=== PATIENT | male | born 1985 | race Caucasian/White ===

== ENCOUNTER 2024-12-02 09:26 | Emergency (ER) | payer OTHER, SELFPAY ==
--- NOTE | ~2024-12-02 | US_ITS ---
EXAMINATION: US ABDOMEN LIMITED CLINICAL INFORMATION: Right upper quadrant pain and tenderness.. COMPARISON: None available. TECHNIQUE: Real-time imaging of the right upper quadrant abdominal viscera. FINDINGS: PANCREAS: Visualized portions are unremarkable. LIVER: The liver is normal in size. The liver contour is normal. There is diffuse increased liver parenchymal echogenicity, consistent with hepatic steatosis. No focal hepatic lesion. There is no intrahepatic biliary duct dilatation seen. GALLBLADDER: The gallbladder is physiologically distended without evidence of stones, sludge, wall thickening or pericholecystic fluid. There is a tiny 2 x 3 x 3 mm mural-based polyp, COMMON BILE DUCT: Normal in caliber measuring 0.3 cm in diameter. RIGHT KIDNEY: No hydronephrosis. No renal calculi or focal parenchymal lesions. The kidney measures 11.4 cm in maximum dimension. FREE FLUID: None. US/US abdomen limited IMPRESSION: 1. Echogenic liver likely representing steatosis. No focal lesions. 2. Gallbladder is normal aside from a tiny 2 x 3 x 3 mm polyp. 3. No biliary dilatation. Electronically signed by: Juan Gaines MD 12/02/2024 11:00 AM [facility]
[2024-12-02 09:34] VITALS: BP 148/88; PULSE 71; RESP 18; TEMP 35.8; O2SAT 97; BMI 30.7
--- NOTE | 2024-12-02 09:49 | ED.GENADULT ---
HPI - General Adult General Chief complaint: Abdominal Pain Stated complaint: pain r side abd rib area Time Seen by Provider: 12/02/24 09:49 History of Present Illness ED Provider: Elena GOLDSTEIN narrative: The patient is a 39-year-old male who was here for evaluation of right upper quadrant abdominal pain. He says that he has been having problems long time, possibly as long as months or even years with intermittent pains in his right upper abdomen. He feels the symptoms are worse after eating. He feels the symptoms has been worse over the last few days. He often feels that there is a sense of bulging of his abdomen in the right upper quadrant. His pain is not worse with taking a deep breath. He does not have any shortness of breath. He does not have any rib pain. He has not had any injuries. He has no sore throat. No sense of fever. No nausea or vomiting. Normal bowel movements. He says that when he has a bowel movement however he feels that the pressure of passing stool causes pain in his right upper abdomen. Related Data Previous Rx's ?Medication ?Instructions ?Recorded omeprazole 40 mg capsule,delayed 40 mg PO DAILY #30 caps 12/02/24 release Allergies Allergy/AdvReac Type Severity Reaction Status Date / Time gabapentin [GABAPENTIN] Allergy Severe RASH Verified 12/02/24 09:37 amoxicillin [AMOXICILLIN] Allergy Unknown FACIAL Verified 12/02/24 09:37 SWELLING clindamycin [CLINDAMYCIN] Allergy Unknown FACIAL Verified 12/02/24 09:37 SWELLING latex [LATEX] Allergy Unknown RASH Verified 12/02/24 09:37 penicillin V Allergy Unknown facial Verified 12/02/24 09:37 swelling Clindamycin HCl Allergy Unknown facial Uncoded 12/02/24 09:37 swelling Review of Systems Review of Systems: Yes all other systems are reviewed and are negative PMFSH Social History Social History Smoked in Last 30 Days: No Use of substances other than those prescribed or required for medical reasons: No Advance Directives: No Advance Directives Information Provided: Yes Do you have a plan to hurt others: No Plan Physical Exam ED Vital Signs: Vital Signs - 24 hr 12/02/24 09:34 12/02/24 11:52 Temperature 96.5 F L 98.6 F Pulse Rate 71 76 Respiratory Rate 18 18 Blood Pressure 148/88 H 138/84 Pulse Oximetry 97 98 Oxygen Delivery Method Room Air Room Air BMI result Body Mass Index 30.7 Const Other: The patient has the appearance of an ordinarily healthy 39-year-old. He does not appear in distress. Orientation/consciousness: patient oriented x3 HENMT Other: Face is symmetrical. Mucous membranes moist. Eyes General: appearance normal, both eyes and all related structures Neck Neck: Yes full ROM and Yes no lymphadenopathy Chest Other: No chest wall tenderness. No rib tenderness. Resp Effort & Inspection: normal respiratory effort Auscultation: clear to auscultation bilaterally Cardio Rate: regular rate Rhythm: regular rhythm Heart sounds: S1 normal heart sound present and S2 normal heart sound present GI Other: The patient has some tenderness in the right upper quadrant. No true Bonner's sign. The abdomen is otherwise soft and nontender Skin Other: Skin is dry and unremarkable Neuro General: patient oriented x3, gait normal, tone normal and moves all extremities Extrem General: Yes no pedal edema Medical Decision Making Medical Decision Making MDM Narrative: The patient is here for evaluation of right upper quadrant abdominal pain. He has no respiratory symptoms. This pain seems to be very subacute. He describes having pains like this going back as long as 5 years. His description of the pain sounds as if it may be more related to an abdominal wall problem than an intra-abdominal problem. An ultrasound of his gallbladder shows a small gallbladder polyp but no other findings. I explained to the patient that I thought that his pain syndrome might be related to his abdominal wall muscles. He is very concerned about the possibility of an abdominal wall hernia. I think this is probably unlikely but I will refer him to General surgery for evaluation as an outpatient to discuss this question further. I explained to the patient that there was an incidental finding of a gallbladder polyp. I told him this was normally benign process but he may discuss this further with his PCP. The patient also complained of excessive burping and says that his pain is sometimes worse when he eats. Perhaps he has some degree of gastritis. He will be started on omeprazole. Lab Data 12/02/24 09:46 12/02/24 09:46 Labs: Lab Results 12/02/24 12/02/24 Range/Units 09:46 10:12 WBC 5.5 (4.8-10.8) X10*3/uL RBC 5.04 (4.60-5.80) X10*6/uL Hgb 15.2 (14.0-18.0) g/dl Hct 43.6 (42.0-52.0) % MCV 86.5 (80.0-98.0) fL MCH 30.2 (27.0-33.0) pg MCHC 34.9 (31.0-36.0) g/dl RDW 11.9 (11.0-16.0) % Plt Count 168 (160-400) X10*3/uL MPV 9.9 (9.4-12.4) fL Immature Gran % (Auto) 0.2 (0.0-0.4) % Neut % (Auto) 39.7 L (45-73) % Lymph % (Auto) 47.4 H (20-40) % [facility] % (Auto) 7.3 (2-11) % Eos % (Auto) 4.9 H (0-4) % Baso % (Auto) 0.5 (0-2) % Lymph # (Auto) 2.6 (1.2-4.9) X10*3/uL [facility] [place] [facility] # (Auto) 0.4 (0.1-1.2) X10*3/uL Eos # (Auto) 0.3 (0.0-0.4) X10*3/uL Baso # (Auto) 0.0 (0.0-0.2) X10*3/uL Abs Immat Gran (auto) 0.01 (0.00-0.03) X10*3/uL Absolute Neuts (auto) 2.2 (2.0-8.3) x10*3/uL Absolute Nucleated RBC 0.000 (0.0-0.012) X10*3/uL Nucleated RBC % (auto) 0.0 (0.0-0.2) /100WBC Sodium 139 (135-145) mmol/L Potassium 4.4 (3.3-5.1) mmol/L Chloride 109 H (96-108) mmol/L Carbon Dioxide 24 (22-29) mmol/L Anion Gap 10 L (12-20) BUN 23 H (9-16) mg/dL Creatinine 0.94 (0.5-1.4) mg/dL Estim Creat Clear Calc 108.5 Estimated GFR > 60 Fasting Glucose 105 H (60-99) mg/dL Calcium 9.5 (8.4-10.2) mg/dL Total Bilirubin 0.6 (0.0-1.0) mg/dL Direct Bilirubin 0.3 (0.0-0.5) mg/dL AST 21 (5-37) U/L ALT 35 (0-40) U/L Alkaline Phosphatase 32 L (39-117) U/L Total Protein 7.5 (6.5-8.0) g/dL Albumin 4.6 (3.5-5.0) g/dL Lipase 21 (8-78) U/L Urine Color Yellow Urine Appearance Clear Urine pH 5.5 (5.0-9.0) Ur Specific [place] 1.020 (1.005-1.025) Urine Protein Negative (Neg-Trace) mg/dL Urine Glucose (UA) Negative (Negative) mg/dL Urine Ketones Negative (Negative) mg/dL Urine Blood Negative (Negative) Urine Nitrite Negative (Negative) Ur Leukocyte Esterase Negative (Negative) Discharge Plan Discharge Clinical Impression: Abdominal pain, right upper quadrant, Gallbladder polyp Patient Disposition: Home, Self-Care Additional Instructions: Your blood testing and the ultrasound of your gallbladder are unremarkable. Your ultrasound shows a very small polyp in your gallbladder. Gallbladder polyps or generally considered benign. You may discuss this further with your primary care doctor. I think that your pain may be coming from the abdominal wall muscles where they inserted into your right lower ribcage. Perhaps you had some kind of injury to your abdominal muscles in the past which remains a vulnerable spot. Please contact the General surgery office for an appointment with a general surgeon to discuss whether they think there is any chance of an abdominal wall hernia. Also follow up with your regular doctor. It is possible that some of your symptoms may be related to stomach acid over production. I have sent a prescription for medication called omeprazole to your pharmacy. This is a stomach acid reducing medication. Please take this medication once a day to see if it helps. You may discuss this further with your regular doctor. May try ibuprofen and/or acetaminophen as needed for discomfort when it is most severe. Return to the emergency room if worse. Prescriptions: New omeprazole 40 mg capsule,delayed release(DR/EC) 40 mg PO DAILY Qty: 30 0RF [place] [facility] [place] Group] (RUQ pain) Fred Neil MD [Primary Care Provider] - Print Language: Gibraltarian
[2024-12-02 09:51] LABS: MANUAL DIFF FLAG NO
[2024-12-02 09:53] LABS: Basophils Percent Auto 0.5 % (0-2); Eosinophils Absolute Auto 0.3 X10*3/uL (0.0-0.4); Eosinophils Percent Auto 4.9 % (0-4); Hematocrit 43.6 % (42.0-52.0); Hemoglobin 15.2 g/dl (14.0-18.0); Imm Gran Abs Auto 0.01 X10*3/uL (0.00-0.03); Imm Gran Pct Auto 0.2 % (0.0-0.4); Lymphocytes Absolute Auto 2.6 X10*3/uL (1.2-4.9); Lymphocytes Percent Auto 47.4 % (20-40); Mean Corpuscular HGB Conc 34.9 g/dl (31.0-36.0); Mean Corpuscular Hemoglobin 30.2 pg (27.0-33.0); Mean Corpuscular Volume 86.5 fL (80.0-98.0); Mean Platelet Volume 9.9 fL (9.4-12.4); Monocytes Absolute Auto 0.4 X10*3/uL (0.1-1.2); Monocytes Percent Auto 7.3 % (2-11); Neutrophils Absolute Auto 2.2 x10*3/uL (2.0-8.3); Neutrophils Percent Auto 39.7 % (45-73); Platelet Count 168 X10*3/uL (160-400); Red Blood Count 5.04 X10*6/uL (4.60-5.80); Red Cell Distribution Width 11.9 % (11.0-16.0); White Blood Count 5.5 X10*3/uL (4.8-10.8)
--- OUTSIDE RECORDS SUMMARY | 2024-12-02 09:59 | XMS_ITS | Clinical Summary ---
Author Organization [facility] [address] [place] [address] Address [address], [place] Phone Care Team Providers Care Day Haul Youth Supervisor Name Role Phone Unavailable Primary Care Provider Unavailabl e Social History Tobacco Use Types Packs/Day Years Used Date Smoking Tobacco: Never Assessed Sex and Gender Information Value Date Recorded Sex Assigned at Not on file Gender Identity Not on file Sexual Orientation Not on file Plan of Treatment Upcoming Encounters Date Type Department Care Team ([facility] st Contact Info) Description 01/20/2025 1:00 PM EDT Office Visit Adult Medicine [facility] [address], [place] [phone] Fred Neil MD [address], [place] Health Maintenance Due Date Last Done Comments DTaP,Tdap,and Td Vaccines (1 - Tdap) 2004 Hepatitis B Vaccines (1 of 3 - 19+ 3-dose series) 2004 COVID-19 Vaccine ( - 2023-2 5 season) 2024 Influenza Vaccine (#1) 2024 Cholesterol Screening (Lipid Panel) 09/07/2024 Depression Screening 09/07/2024 HIV Screening 09/07/2024 Hepatitis C Screening 09/07/2024 Social Influencers of Health Screening 09/07/2024 HIB Vaccines Aged Out No longer eligi ble based on patient's age to complete this topic HPV Vaccines Aged Out No longer eligi ble based on patient's age to complete this topic Hepatitis A Vaccines Aged Out No long er eligible based on patient's age to complete this topic IPV Vaccines Aged Out No longer eligi ble based on patient's age to complete this topic MMR Vaccines Aged Out No longer eligi ble based on patient's age to complete this topic Meningococcal ACWY Vaccine Aged Out N o longer eligible based on patient's age to complete this topic Pneumococcal Vaccine: Pediat rics (0 to 5 Years) and At-Risk Patients (6 to 64 Years) Aged Out No longer eligible b ased on patient's age to complete this topic RSV Immunization Patients Un esthela 20 months Aged Out No longer eligible b ased on patient's age to complete this topic Varicella Vaccines Aged Out No longer eligible based on patient's age to complete this topic
[2024-12-02 10:06] LABS: Alanine Aminotransferase 35 U/L (0-40); Albumin Level 4.6 g/dL (3.5-5.0); Alkaline Phosphatase 32 U/L (39-117); Anion Gap 10 (12-20); Aspartate Amino Transferase 21 U/L (5-37); Bilirubin Direct 0.3 mg/dL (0.0-0.5); Bilirubin Total 0.6 mg/dL (0.0-1.0); Blood Urea Nitrogen 23 mg/dL (9-16); Calcium 9.5 mg/dL (8.4-10.2); Carbon Dioxide 24 mmol/L (22-29); Chloride 109 mmol/L (96-108); Creatinine Clr Calc Pharmacy 108.5; Estimated Glomerular Filt Rate > 60; Glucose Fasting 105 mg/dL (60-99); Lipase 21 U/L (8-78); Potassium 4.4 mmol/L (3.3-5.1); Sodium 139 mmol/L (135-145); Total Protein 7.5 g/dL (6.5-8.0)
[2024-12-02 10:24] LABS: Appearance Urine Clear; Color Urine Yellow; Glucose Urine UA Negative (Negative); Leukocyte Esterase Urine Negative (Negative); Nitrite Urine Negative (Negative); PH 5.5 (5.0-9.0); Urine Blood Negative (Negative); Urine Ketones Negative (Negative); Urine Protein Negative (Neg-Trace)
[2024-12-02 11:52] VITALS: BP 138/84; PULSE 76; RESP 18; TEMP 37; O2SAT 98
[2024-12-02 12:00] VITALS: BP 138/84; PULSE 76; RESP 18; TEMP 37; O2SAT 98
== END 2024-12-02 12:00 | disposition home or self-care (01) ==
PROVIDERS: Emergency Provider Emergency Medicine; PCP Internal Medicine
DX: K82.4 Cholesterolosis of gallbladder (principal); R10.2 Pelvic and perineal pain; R07.81 Pleurodynia; R10.11 Right upper quadrant pain; Z79.899 Other long term (current) drug therapy
CPT/HCPCS: 36415; 76705; 80053; 80076; 81003; 82248; 83690; 85025; 99284

== ENCOUNTER → 2024-12-02 09:55 | Outpatient (BNV) | payer MEDICAID, SELFPAY | PROVIDERS: Emergency Provider Emergency Medicine; PCP Internal Medicine; Visit Provider Radiology Diagnostic Radiology | DX: R10.11 Right upper quadrant pain (principal) | CPT/HCPCS: 76705 ==

== ENCOUNTER 2024-12-06 10:59 | Outpatient (AMB) | payer MEDICAID, SELFPAY ==
--- NOTE | 2024-12-06 11:00 | A.OFFVIS_ITS ---
Vital Signs 12/06/24 11:05 Height 5 ft 6 in Weight 195 lb BMI 31.5 BP 131/85 Blood Pressure Location Rt brachial Position Sitting Pulse 77 Intake Visit Reasons: RUQ pain Intake Note: Patient referred after ED visit for RUQ pain. #2 concern umbilical hernia. Patient c/o: pain on and off. Denies nausea, vomiting, diarrhea, constipation. ABD US: 12-02-2024 Class B Driver Required: No Accompanied by: Self / Same As Patient Allergies gabapentin [GABAPENTIN] Allergy (Severe, Verified 12/06/24 11:05) RASH amoxicillin [AMOXICILLIN] Allergy (Unknown, Verified 12/06/24 11:05) FACIAL SWELLING clindamycin [CLINDAMYCIN] Allergy (Unknown, Verified 12/06/24 11:05) FACIAL SWELLING latex [LATEX] Allergy (Unknown, Verified 12/06/24 11:05) RASH penicillin V Allergy (Unknown, Verified 12/06/24 11:05) facial swelling Clindamycin HCl Allergy (Unknown, Uncoded 12/06/24 11:05) facial swelling Medication List - Last Reconciled 12/06/24 by Petey Interiano MD omeprazole 40 mg PO DAILY HPI Comments Details: Patient presents for evaluation of 1 of a symptomatic umbilical hernia 2. Of incidental finding of gallbladder polyp. Patient was had the umbilical hernia for many years time. His increasing in size, become more symptomatic. He would like to have repaired. He has no other GI issues or complaints aside from occasional gas pains. Patient has had upper endoscopy in the past. He has not had colonoscopy. He does significant heavy lifting at his place of employment. Patient had an ultrasound of his right upper quadrant because of symptoms which were felt to be related to his abdominal wall and it was done to rule out hernia in this area which he did not have. Incidental finding was of gallbladder polyp. This was quite small 2-3 mm. Patient never been jaundiced before. Past surgical history; 0pen right inguinal hernia repair in his youth. [facility] Surgical History (Updated 12/06/24 @ 11:17 by Petey Interiano MD) Hx of hernia repair Social History (Updated 12/06/24 @ 11:08 by JAYDEN Ceja) Alcohol intake: current Alcohol intake frequency: holidays/special occasions only Patient Tobacco Use Status: Never used Tobacco Physical Exam Vital Signs: Last Vital Signs Pulse 77 12/06/24 11:05 BP 131/85 12/06/24 11:05 BMI result Body Mass Index 31.5 Chest Other: Chest breath sounds bilaterally, HS 1 in 2 GI Other: Patient was examined both supine and standing with Valsalva. Corpulent abdomen. Right groin 0 scar from prior hernia repair. Bilateral groin exam negative. Genitalia within normal limits. Patient was a roughly 3 cm reducible umbilical hernia. Right upper quadrant demonstrates no evidence of any obvious hernia. Assessment & Plan Assessment & Plan (1) Umbilical hernia: Code(s): K42.9 - Umbilical hernia without obstruction or gangrene Category: Surgical Plan: Risks, benefits, alternatives of open right inguinal hernia repair reviewed with the patient and included but not limited to bleeding, infection, recurrence, numbness, pain, scarring, bowel injury and the patient wishes to proceed. All questions answered. Arrangements were made for this on a day which is convenient for him. (2) Gallbladder polyp: Code(s): K82.4 - Cholesterolosis of gallbladder Category: Surgical Plan: Patient will undergo surveillance of his gallbladder with follow-up ultrasound of the right upper quadrant in 6 months time. He will see me after that study as well. Orders: Orders US abdomen limited 6 Months K82.4 - Cholesterolosis of gallbladder Coding Level of Care Code New Pt Level 5 (59463) Diagnoses Umbilical hernia K42.9 Gallbladder polyp K82.4
[2024-12-06 11:05] VITALS: BP 131/85; PULSE 77; BMI 31.5
--- OUTSIDE RECORDS SUMMARY | 2024-12-06 12:06 | XMS_ITS | Clinical Summary ---
Author Organization [facility] [address] [place] [address] [place] [address] Phone Care Team Providers Care Aba Tutor Name Role Phone Unavailable Primary Care Provider Unavailabl e Social History Tobacco Use Types Packs/Day Years Used Date Smoking Tobacco: Never Assessed Sex and Gender Information Value Date Recorded Sex Assigned at Not on file Legal Sex Male 1:53 PM EST Gender Identity Not on file Sexual Orientation Not on file Plan of Treatment Upcoming Encounters Date Type Department Care Team ([facility] st Contact Info) Description 01/20/2025 1:00 PM EDT Office Visit Adult Medicine [address] [phone] Fred Neil MD [address] [place] [address] Health Maintenance Due Date Last Done Comments DTaP,Tdap,and Td Vaccines (1 - Tdap) 1992 Hepatitis B Vaccines (1 of 3 - 19+ 3-dose series) 2004 COVID-19 Vaccine (2023-2 5 season) 2024 Influenza Vaccine (#1) 2024 [...] patient's age to complete this topic Meningococcal B Vacine Aged Out No lo nger eligible based on patient's age to complete [...]
--- OUTSIDE RECORDS SUMMARY | 2024-12-06 12:06 | XMS_ITS | Data Portability ---
Author Organization [facility] [employer], [address] Address [address] [place] [address] Assessment No assessment recorded. Plan of Treatment Reminders Order Date Submit Date Provider Last Modified By Organization Details Last Modified Time Details Appointments None record ed. Lab None record ed. Referral None record ed. Procedures None record ed. Surgeries None record ed. Imaging None record ed. Medication Orders None record ed. Patient TargetsNo targets recorded. Patient InstructionsNo instructions recorded. Reason for Referral None Reported. Procedures Surgical History Date Name Laterality Status Provider Name and Address Organization Details Recorded Time OC-DOT PHYSICAL completed Jerardo Bryant [facility] [employer] [facility] 05/08/2024 11:40:08 Imaging Results None recorded. Procedure Notes None recorded. Medical Equipment None Reported. Medications Name Sig Start Date Stop Date Status Note LastModified by Organization Details LastModified Time amoxicillin 500 mg capsule TAKE 1 CAPSULE BY MOUTH EVERY 8 HOURS FOR 7 DAYS active Not Available Not Available No t Available Vitals None Recorded Social History None recorded. Functional Status None recorded. Mental Status None recorded. Family History Nothing Reported. Medical History No medical history recorded. 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 There may be additional screening tests that they will perform that we do not in the urgent care setting.Fa edsonure to follow up as recommende d may result in significan t adverse health consequenc es.?I f your symptoms worsen or you develop new symptoms that concern you, go to the emergency department for further evaluation . Health Concerns Section Related Observation LastModified by Organization Detai ls LastModified Time None Recorded Concern Status LastModified by Organization Details LastModified Time None Recorded Advance Directives Directive None Recorded Payers Encounter Date Sequence Insurance Name Policy Number Policy Omalley Covered Member ID Omalley Member ID Guarantor Name 05/08/2024 OC-PAY AT TIME OF SERVICE 2022 Gurwinder Conde OTHER Gurwinder Conde Notes Date Note Type Note Provider Name and Address Organization Details Recorded Time 05/08/2024 text/html PhysicalReported bypatient.source of patient informationpatient 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
== END 2024-12-06 11:13 | disposition home or self-care (01) ==
PROVIDERS: PCP Internal Medicine; Visit Provider Surgery
DX: K42.9 Umbilical hernia without obstruction or gangrene (principal); K82.4 Cholesterolosis of gallbladder
CPT/HCPCS: 99204

== ENCOUNTER → 2024-12-06 10:59 | Outpatient (BNVA) | payer MEDICAID, SELFPAY | PROVIDERS: PCP Internal Medicine; Visit Provider Surgery | DX: K42.9 Umbilical hernia without obstruction or gangrene (principal); K82.4 Cholesterolosis of gallbladder | CPT/HCPCS: 99202 ==

== ENCOUNTER 2025-04-04 15:22 | Outpatient (AMB) | payer OTHER, SELFPAY ==
--- NOTE | 2025-04-04 15:22 | A.OFFVIS_ITS ---
Vital Signs 04/04/25 15:29 Height 5 ft 6 in Weight 194 lb BMI 31.3 BP 138/77 Blood Pressure Location Rt brachial Position Sitting Pulse 77 Intake Visit Reasons: umbilical hernia Intake Note: Patient last seen by Dr. Interiano on 12-06-2024. Patient would like Umbilical hernia repaired. Patient c/o: sensitive to touch. Discomfort when puts pressure. PCP: Mateo Abbott (currently on wait list) Water Hydrant Installer Required: No Accompanied by: Self / Same As Patient Allergies gabapentin [GABAPENTIN] Allergy (Severe, Verified 04/04/25 15:23) RASH amoxicillin [AMOXICILLIN] Allergy (Unknown, Verified 04/04/25 15:23) FACIAL SWELLING clindamycin [CLINDAMYCIN] Allergy (Unknown, Verified 04/04/25 15:23) FACIAL SWELLING latex [LATEX] Allergy (Unknown, Verified 04/04/25 15:23) RASH penicillin V Allergy (Unknown, Verified 04/04/25 15:23) facial swelling Clindamycin HCl Allergy (Unknown, Uncoded 04/04/25 15:23) facial swelling Medication List - Last Reconciled 04/04/25 by Jack Augustin MD omeprazole 40 mg PO DAILY HPI HPI umbilical hernia: Details: 39-year-old male here for follow-up for an umbilical hernia. He had been previously seen by Dr. Interiano for this. He has been scheduled for repair. He describes having this sensitivity and pain on the umbilical area for several months now. He had an ultrasound back in November, showing a fat containing umbilical hernia He feels well overall. He denies any GI complaints. 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 [facility] Surgical History Hx of hernia repair Social History Alcohol intake: current Alcohol intake frequency: holidays/special occasions only Patient Tobacco Use Status: Never used Tobacco Review of Systems Const Denies chills and Denies fever(s) Card Denies chest pain, Denies dyspnea and Denies dyspnea on exertion Resp Denies cough, Denies dyspnea and Denies dyspnea on exertion GI Denies hematochezia and Denies change in bowel habits Denies hematuria and Denies difficulty urinating Musc Denies back pain and Denies limited range of motion Neuro Denies focal weakness and Denies convulsions Psych Denies depression and Denies mood swings Physical Exam Vital Signs: Last Vital Signs Pulse 77 04/04/25 15:29 BP 138/77 04/04/25 15:29 BMI result Body Mass Index 31.3 Const General: comfortable and no acute distress Nutritional Appearance: overweight Orientation/consciousness: patient oriented x3 Neck Neck: Yes no lymphadenopathy Resp Auscultation: clear to auscultation bilaterally Cardio Rhythm: regular rhythm GI Other: Protuberant abdomen with small umbilical hernia about 1.5 cm Palpation (GI): Soft to palpation, nontender and no guarding Neuro General: patient oriented x3 Assessment & Plan Assessment & Plan (1) Umbilical hernia: Code(s): K42.9 - Umbilical hernia without obstruction or gangrene Category: Surgical Plan: He has a small reducible umbilical hernia as above. He wants to proceed with the repair. I explained to him the technique of repair with possible mesh placement. I reviewed the risks including but not limited to bleeding, infections, bowel injury, recurrence, as well as the benefits and alternatives. I also reviewed with him what to expect postoperatively He says he understands and wants to proceed. Coding Level of Care Code New Pt Level 3 (20947) Diagnoses Umbilical hernia K42.9
[2025-04-04 15:29] VITALS: BP 138/77; PULSE 77; BMI 31.3
--- OUTSIDE RECORDS SUMMARY | 2025-04-04 17:05 | XMS_ITS | Clinical Summary ---
Author Organization [address] Address [address] [place], [place] Phone Care Team Providers Care Carbon Dioxide Operator Name Role Phone Teresa Velasco MD Primary Care Provider Social History Tobacco Use Types Packs/Day Years Used Date Smoking Tobacco: Never Assessed Sex and Gender Information Value Date Recorded Sex Assigned at Not on file Legal Sex Male 1:53 PM EST Gender Identity Not on file Sexual Orientation Not on file Plan of Treatment Upcoming Encounters Date Type Department Care Team ([facility] st Contact Info) Description 09/21/2025 11:00 AM EST Office Visit Adult Medicine [address] [phone] Teresa Velasco MD [address] [place] [address] Health Maintenance Due Date Last Done Comments DTaP,Tdap,and Td Vaccines (1 - Tdap) 2004 Hepatitis B Vaccines (1 of 3 - 19+ 3-dose series) 2004 COVID-19 Vaccine (2023-2 5 season) 2024 Cholesterol Screening (Lipid Panel) 09/07/2024 Depression Screening 09/07/2024 HIV Screening 09/07/2024 Hepatitis C Screening 09/07/2024 Social Influencers of Health Screening 09/07/2024 Influenza Vaccine (Season Ended) 2025 HIB Vaccines Aged Out No longer eligi [...] age to complete this topic Meningococcal B Vaccine Aged Out No l onger eligible based on patient's age to complete [...] on patient's age to complete this topic Insurance MED[place] - [place] [facility] Care Teams Carbon Dioxide Operator Relationship Specialty Start Date End Date Teresa Velasco MD [address] [place] [address] PCP - General Internal Medicine 01/25/25
== END 2025-04-04 15:40 | disposition home or self-care (01) ==
LOC: HO.HGS 15:22
PROVIDERS: PCP Internal Medicine; Visit Provider Surgery
DX: K42.9 Umbilical hernia without obstruction or gangrene (principal)
CPT/HCPCS: 99203

== ENCOUNTER → 2025-04-04 15:22 | Outpatient (BNVA) | payer OTHER, SELFPAY | PROVIDERS: PCP Internal Medicine; Visit Provider Surgery | DX: K42.9 Umbilical hernia without obstruction or gangrene (principal) | CPT/HCPCS: 99202 ==

== ENCOUNTER 2025-06-17 08:33 | Outpatient (REF) | payer OTHER, SELFPAY ==
--- NOTE | ~2025-06-17 | US_ITS ---
CLINICAL HISTORY: K82.4 - Cholesterolosis of gallbladder --- Additional Notes or Special Instructions: Surveillance six-month gallbladder polyp Exam: Ultrasound of the abdomen limited. Comparison: None provided. Findings: Liver measures 15 cm in long axis. Diffuse increased echotexture throughout the liver without focal lesion or intrahepatic biliary ductal dilatation. Common bile duct is within normal limits. Tiny echogenic focus along the gallbladder wall measures 2 x 3 mm in size. No gallbladder wall thickening or pericholecystic fluid. Negative sonographic Bonner's sign. No free fluid. Pancreas can not be visualized due to overlying bowel gas. Right kidney is unremarkable Impression: 1. Echogenic liver. This can be seen with fatty infiltration or medical liver disease. 2. Tiny echogenic focus along the gallbladder wall may be related to adherent stone, small sludge ball, or tiny polyp. No findings of cholecystitis. This document has been electronically signed by: Checo Quick MD on 06/18/2025 11:39:26
--- OUTSIDE RECORDS SUMMARY | 2025-06-17 08:49 | XMS_ITS | Clinical Summary ---
Author Organization [address] Address [address] [place], [place] Phone Care Team Providers Care Machine Driller Name Role Phone Teresa Velasco MD Primary Care Provider Social History Tobacco Use Types Packs/Day Years Used Date Smoking Tobacco: Never Assessed Sex and Gender Information Value Date Recorded Sex Assigned at Not on file Legal Sex Male 1:53 PM EST Gender Identity Not on file Sexual Orientation Not on file Plan of Treatment Upcoming Encounters Date Type Department Care Team ([facility] st Contact Info) Description 09/21/2025 11:00 AM EST Office Visit Adult Medicine [address] [phone] Teresa Velasco MD [address] [place] [address] Health Maintenance Due Date Last Done Comments DTaP,Tdap,and Td Vaccines (1 - Tdap) 2004 Hepatitis B Vaccines (1 of 3 - 19+ 3-dose series) 2004 COVID-19 Vaccine (2023-2 5 season) 2024 Cholesterol Screening (Lipid Panel) 09/07/2024 HIV Screening 09/07/2024 Hepatitis C Screening 09/07/2024 Social Influencers of Health Screening 09/07/2024 Depression Screening 10/27/2024 Influenza Vaccine (#1) 2025 HIB Vaccines Aged Out No longer [...] 5 Years) and At-Risk Patients (6 to 49 Years) Aged Out No longer eligible b ased on patient's age to complete this topic RSV Immunization Patients Un esthela 20 months Aged Out No longer eligible b ased on patient's age to complete this topic Varicella Vaccines Aged Out No longer eligible based on patient's age to complete this topic Insurance [place] - [place] [facility] Care Teams Machine Driller Relationship Specialty Start Date End Date Teresa Velasco MD [address] [place] [address] PCP - General Internal Medicine 01/25/25
--- OUTSIDE RECORDS SUMMARY | 2025-06-17 08:49 | XMS_ITS | Encounter Summary ---
Author Organization [facility] Address [address] [place] [address] Phone Care Team Providers Care Telegraph Repeater Technician Name Role Phone Unknown, Unknown Primary Care Provider Mathieu hurst Encounter Details Date Type Department Care Team (Late st Contact Info) Description 03/26/2017 Procedure Pass MRI, [facility] - [address], [address] [place] [id number] Social History Tobacco Use Types Packs/Day Years Used Date Smoking Tobacco: Former Cigarettes 0.5 5 1 11/10/2001 - 09/10/2007 Smokeless Tobacco: Never Alcohol Use Standard Drinks/Week Comments No 0 (1 standard drink = 0.6 oz pur e alcohol) Sex and Gender Information Value Date Recorded Sex Assigned at Not on file Legal Sex Male 11:58 AM EDT Gender Identity Not on file Sexual Orientation Not on file documented as of this encounter Plan of Treatment Not on file documented as of this encounter Visit Diagnoses Not on filedocumented in this encounter Care Teams Telegraph Repeater Technician Relationship Specialty Start Date End Date Unknown, Unknown, PCP - General 12/05/15 documented as of this encounter Additional Source Comments The information contained in this document represents components of the legal health record. It is not the complete legal health record.[facility]
--- OUTSIDE RECORDS SUMMARY | 2025-06-17 08:49 | XMS_ITS | Patient Health Record ---
Author Organization [facility] Address [address] [place] [address] Care Team Providers Care Release Coordinator Name Role Phone Po Tiffanie GONZALEZ Primary Care Provider Thomas Garvin Jr Unavailable [phone] Ezra Nicolas Unavailable Unavailable Allergies Allergen (clinical drug ingredient) Drug/Non Drug Allergy documented on EMR Reaction Allergy Type Onset Date Status ? anti biotics (uncoded) Unknown Allergy Active Reason For Referral No Information Medications Medication SIG (Take, Route, Frequency, Duration) Notes Start Date End Date Status Ibuprofen 200 MG 1 tablet with food o r milk as needed Orally prn Active oxyCODONE HCl 5 MG 1 tablet Orally ever y 6 hrs/prn Active Tylenol 325 MG 1 tablet as needed O rally every 4 hrs/prn Active Pantoprazole Sodium 40 MG 1 tablet Orall y Once a day for 30 day(s) 05/06/2018 Active Social History Tobacco Use: Social History Observation Description Date Details (start date - stop date) Former Smoker NA - NA Tobacco Use/Smoking Question Answer Notes Patient is a former smoker How long has it been since you last smoked? > 10 years Alcohol Screen Question Answer Notes Did you have a drink containing alcohol in the p ast year? Yes Points 0 Interpretation Negative Problems Problem Type SNOMED Code ICD Code Onset Dates Problem Status W/U Status Risk Notes Problem 94983300 Epigastric pain (R10.13) Active confirmed Problem 801500044 Shortness of floyd ath (R06.02) Active confirmed Problem 223951597 Abnormal upper gastrointestinal barium series (R93.3) Active confirmed Problem 249347138 RUQ pain (R10.11) Active confirmed Plan Of Treatment Future Test Test Name Order Date UPPER GI ENDOSCOPY 05/06/2018 Insurance Providers Payer Name Payer Address Payer Phone Subscriber Number Group Number Insured Name Patient Relationship to Insured Coverage Start Date Coverage End Date [facility] [address] [address] [place], [place] [id number] ABDIAS JONES Self - patient is the insured Medical (General) History Medical History History ICD Code Denies AR,DM,CVA,Lung disease,renal dise ase headaches Surgical History Surgery Date(Month/Year) carpal tunnel release-both hand surgery,due to hand kelly ryan cut a piece of bone from hip to place in hand hernia repair
== END 2025-06-17 08:34 | disposition home or self-care (01) ==
LOC: HO.US 08:33
PROVIDERS: Visit Provider Surgery
DX: K82.4 Cholesterolosis of gallbladder (principal)
CPT/HCPCS: 76705

== ENCOUNTER → 2025-06-17 08:35 | Outpatient (BNV) | payer OTHER, SELFPAY | PROVIDERS: Visit Provider Radiology Diagnostic Radiology | DX: R93.2 Abnormal findings on diagnostic imaging of liver and biliary tract (principal) | CPT/HCPCS: 76705 ==